=== PATIENT | male | born 1990 | race Two or more races ===

== ENCOUNTER 2019-03-01 12:52 | Inpatient (IN) ==
[2019-03-01] MEDS ORDERED: fentaNYL citrate 100 MCG/2 ML VIAL IV STA (13:11)
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
[2019-03-01] MEDS ORDERED: MoRPHine SULFATE 4 MG/ML 1 ML CARP\\VIAL IV STA (15:02)
[2019-03-01] MEDS ORDERED: ZOLPIDEM TARTRATE 5 MG TAB PO PRN (15:25)
[2019-03-01] MEDS ORDERED: ONDANSETRON INJ 2 MG/ML 2 ML VIAL IV PRN (15:25)
[2019-03-01] MEDS ORDERED: MAGNESIUM HYDROXIDE SUSP 30 ML UDC PO PRN (15:25)
[2019-03-01] MEDS ORDERED: METOCLOPRAMIDE HCL INJ 5 MG/ML 2 ML VIAL IV PRN (15:25)
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
[2019-03-01] MEDS: D5W AND 1/2NSS 1,000 ML IV SCH (16:00)
[2019-03-01] MEDS: OXYCODONE/ACETAMINOPHEN 5mg/325mg TAB PO PRN ×2 (17:16→21:20)
--- NOTE | 2019-03-01 18:44 | Anesthesiology Consultation ---
Date of Service March 01, 2019 Assessment & Plan (1) Encounter for pre-operative examination: Chart Review Chart Review: Acceptable Risk for Surgery and Patient NOT seen in Pre Admission Testing Consults Requested none ASA ASA1 Proposed Anesthesia Risk / Benefits Reviewed With: PT / POA / Parent / Guardian, Accepts Plan and Informed Consent Obtained History Surgery Operation Date: 03/02/19 08:30 Proposed Procedures p Left Forearm Open Reduction Internal Fixation of Midshaft Radius and Ulna Fractures; - Luiz Bean DO s Closed Treatment Radial Styloid Fracture, Closed Treatment Distal Ulna Fracture - Luiz Bean DO Height/Weight Height: 5 ft 9 in Weight: 78 kg Allergies Allergy/AdvReac Type Severity Reaction Status Date / Time No Known Allergies Allergy Unverified 03/01/19 14:31 Medications Home Medications Medication Instructions Recorded Confirmed Last Taken valacyclovir [Valtrex] 1 mg PO QAM 03/01/19 03/01/19 03/01/19 Active Medications Generic Name Dose Route Start Last Admin Trade Name Freq PRN Reason Stop Dose Admin Diphenhydramine HCl 25 mg 03/01/19 15:25 03/01/19 23:50 Benadryl Capsule PO 03/31/19 15:24 25 mg Q8H PRN Administration Itching Docusate Sodium 100 mg 03/01/19 21:00 03/02/19 08:08 Colace PO 03/31/19 20:59 Not Given BID YAAKOV Hydromorphone HCl 0.5 mg 03/01/19 15:30 03/02/19 09:17 Dilaudid IV 03/15/19 15:29 0.5 mg Q1H PRN Administration Pain Dextrose/Sodium Chloride 1,000 mls @ 70 mls/hr 03/01/19 17:00 03/02/19 10:50 D5w And 1/2nss IV 03/31/19 16:59 0 mls/hr .[id number] YAAKOV Infusion Oxycodone/Acetaminophen 1 - 2 tab 03/01/19 15:25 03/01/19 21:20 Percocet 5mg/325mg PO 03/15/19 15:24 2 tab Q4H PRN Administration Pain Valacyclovir HCl 500 mg 03/02/19 09:00 03/02/19 08:09 Valtrex PO 04/01/19 08:59 Not Given QAM YAAKOV NPO Date Last Intake of Fluids: 03/01/19 Time Last Intake of Fluids: 22:00 Date Last Intake of Solids: 03/01/19 Time Last Intake of Solids: 22:00 Past Medical History Medical History No known health problems Exercise / Class Metabolic Activity II 4-5 Yardwork/Stairs/Walk up hill Past Family History Family History Other Family history non-contributory Past Anesthesia History No Hx of Anesthesia Complications and No Family Hx of Anesthesia Complications History of PONV No Hx of PONV and No Hx of Motion Sickness Social History Smoking Status: Never smoker Hx Alcohol Use: Yes Alcohol type: beer alcohol intake frequency: a few times a week Hx Substance Use: No Physical Exam Vital Signs Last Vital Signs Temp 36.7 C 03/02/19 07:33 Pulse 71 03/02/19 07:33 Resp 16 03/02/19 07:33 BP 123/79 03/02/19 07:33 Pulse Ox 97 03/02/19 07:33 ENMT Mouth: no dentition abnormality Thyromental Distance: > or= 3.5 Finger Breadths Mallampati Class: II Neck normal visual inspection Respiratory normal respiratory effort Auscultation: lungs clear to auscultation bilaterally Cardiovascular Rate/Rhythm: regular rate and regular rhythm Psychiatric Orientation: alert
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
[2019-03-01] MEDS: DOCUSATE SODIUM 100 MG CAP PO SCH (21:20)
[2019-03-02] MEDS: HYDROmorphone INJ 0.5 MG/0.5 ML SYR IV PRN ×3 (01:18→09:17)
[2019-03-02] MEDS: D5W AND 1/2NSS 1,000 ML IV SCH ×2 (05:20→23:38)
[2019-03-02] MEDS ORDERED: CEFAZOLIN 2000MG 2,000 MG/15 ML SYR IV SCH (06:00)
[2019-03-02] MEDS ORDERED: ONDANSETRON INJ 2 MG/ML 2 ML VIAL ONE ×2 (06:30→11:07)
[2019-03-02] MEDS ORDERED: fentaNYL citrate 100 MCG/2 ML VIAL ONE (06:30)
[2019-03-02] MEDS ORDERED: MIDAZOLAM HCL 1 MG/ML 2ML VIAL ONE (06:30)
[2019-03-02] MEDS ORDERED: PROPOFOL IV EMULSION 10 MG/ML 20 ML VIAL IV ONE ×2 (06:30→11:07)
[2019-03-02] MEDS ORDERED: LIDOCAINE HCL 2% 2 ML VIAL/AMP(20MG/ML) INFIL ONE ×2 (06:30→11:07)
[2019-03-02] MEDS ORDERED: DEXAMETHASONE SOD INJ 4 MG/ML VIAL ONE ×3 (06:30→11:13)
[2019-03-02] MEDS: DOCUSATE SODIUM 100 MG CAP PO SCH ×2 (08:08→21:14)
[2019-03-02] MEDS: VALACYCLOVIR HCL 500 MG TABLET PO SCH (08:09)
[2019-03-02] MEDS ORDERED: BUPIVACAINE/EPINEPHRINE 0.5% MPF 1:200,000 30 ML VIAL ONE (11:13)
[2019-03-02] MEDS ORDERED: BACITRACIN INJ 50,000 UNIT VIAL ONE (11:22)
[2019-03-02] MEDS ORDERED: ATROPINE SULFATE 0.1 MG/ML 10ML SYR IV PRN (11:23)
[2019-03-02] MEDS ORDERED: ePHEDrine sulfate 50 MG/ML AMP IV PRN (11:23)
[2019-03-02] MEDS ORDERED: HYDROmorphone INJ 2 MG/ML SYR/VIAL IV PRN (11:23)
[2019-03-02] MEDS ORDERED: PROMETHAZINE HCL 6.25 MG in SODIUM CHLORIDE 0.9% 50 ML IV PRN (11:23)
[2019-03-02] MEDS ORDERED: fentaNYL citrate 100 MCG/2 ML VIAL IV PRN (11:23)
[2019-03-02] MEDS ORDERED: ONDANSETRON INJ 2 MG/ML 2 ML VIAL IV PRN (11:23)
--- NOTE | 2019-03-02 11:28 | History & Physical Bridge Note ---
Date of Service March 02, 2019 History & Physical Bridge Note I have examined the patient, reviewed the History & Physical and in the interval since the performance of the History & Physical I have noted the following changes of clinical significance: no changes noted
[2019-03-02] MEDS ORDERED: CEFAZOLIN 250 MG/ML 1 GM VIAL ONE (11:56)
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
--- NOTE | 2019-03-02 14:08 | Post Operative Brief Note ---
Immediate Post Op Note v1 Date of Surgery March 02, 2019 Pre & Post Diagnosis Operation Date: 03/02/19 08:30 Pre-Op Diagnosis: MIDSHAFT RADIUS AND ULNA 100% displaced FRACTURES Post-Op Diagnosis: MIDSHAFT RADIUS AND ULNA 100% displaced FRACTURES Procedure Operation Date: 03/02/19 08:30 Actual Procedures p Left Forearm Open Reduction Internal Fixation of 100% displaced Midshaft Radius and Ulna Fractures(Left), Application long-arm splint left upper extremity - Luiz Bean DO Surgeon Luiz Bean DO Ground Defence Officer Roberto Olivares PA-C Estimated Blood Loss 20 Findings Consistent with Post-Op Diagnosis Specimens None Anesthesia Type General Regional Complications none Disposition Accompanied Patient To Recovery: No Disposition: Recovery Room
--- NOTE | 2019-03-02 14:47 | Anesthesiology Progress Note ---
Date of Service March 02, 2019 Anesthesia Post Procedure Vital Signs Vital Signs: Temp Pulse Pulse Pulse Resp BP BP 03/02/19 14:25 36.6 C 91 H 12 03/02/19 07:33 36.7 C 71 16 03/01/19 23:05 37.2 C 71 16 03/01/19 16:59 36.6 C 78 16 139/75 03/01/19 16:40 76 23 03/01/19 16:30 82 18 145/81 H 03/01/19 16:20 104 H 20 03/01/19 16:10 84 19 03/01/19 16:00 89 21 148/86 H 03/01/19 15:50 91 H 25 H 03/01/19 15:40 103 H 15 03/01/19 15:30 75 21 142/82 H 03/01/19 15:20 72 15 03/01/19 15:10 97 H 23 03/01/19 15:00 80 15 136/71 03/01/19 14:50 90 19 BP Pulse Ox 03/02/19 14:25 141/71 H 100 03/02/19 07:33 123/79 97 03/01/19 23:05 118/79 97 03/01/19 16:59 97 03/01/19 16:40 03/01/19 16:30 03/01/19 16:20 03/01/19 16:10 03/01/19 16:00 03/01/19 15:50 03/01/19 15:40 99 03/01/19 15:30 99 03/01/19 15:20 98 03/01/19 15:10 100 03/01/19 15:00 100 03/01/19 14:50 Pain Intensity Left Arm: Pain Intensity: 0 Transfer of Care Handoff Completed per policy Notes Mental Status: alert / awake / arousable Patient Amnestic to Procedure: Yes Nausea / Vomiting: adequately controlled Pain: adequately controlled Airway Patency, RR, SpO2: stable & adequate BP & HR: stable & adequate Hydration State: stable & adequate Anesthetic Complications: no major complications apparent Notes: Block working well in pacu
[2019-03-02] MEDS ORDERED: CEFAZOLIN 1000MG 1,000 MG/7.5 ML SYR IV ONE (15:24)
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
[2019-03-02] MEDS: OXYCODONE/ACETAMINOPHEN 5mg/325mg TAB PO PRN (23:38)
[2019-03-03] MEDS: OXYCODONE/ACETAMINOPHEN 5mg/325mg TAB PO PRN ×3 (04:00→12:00)
[2019-03-03] MEDS: DOCUSATE SODIUM 100 MG CAP PO SCH (07:20)
[2019-03-03] MEDS: VALACYCLOVIR HCL 500 MG TABLET PO SCH (07:24)
--- NOTE | 2019-03-03 08:46 | Orthopedic Progress Note ---
Date of Service March 03, 2019 Assessment & Plan (1) Left forearm fracture: POD #1, Left forearm ORIF both bone fractures. Pain control. D/C home later if pain controlled and ambulating well. Subjective POD #1, Feeling well, denies SOB, CP, N/V. Pain controlled well on oxycodone. Physical Exam Physical Exam: Left UE splint/ dressing in tact. Still unable to wiggle fingers, likely secondary to nerve block. A&Ox3. Results & Data Vital Signs (Past 12 Hours) Vital Signs Temp Pulse Resp BP Pulse Ox /11/16 07:45 36.5 C 62 16 118/69 97 03/03/19 03:48 36.5 C 71 16 122/69 91 03/02/19 23:19 36.7 C 78 16 131/71 99 (1) Left forearm fracture Encounter type: initial encounter Fracture type: closed Qualified Code(s): S52.92XA - Unspecified fracture of left forearm, initial encounter for closed fracture
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
== END 2019-03-03 12:30 | disposition home or self-care (01) | DRG 512 ==
LOC: ED 12:52 → 3W 15:25